=== PATIENT | male | born 1950 | race Caucasian/White ===

== ENCOUNTER 2018-10-08 16:45 | Inpatient (IN) | payer BC, MEDICARE ==
[2018-10-08] MEDS ORDERED: SODIUM CHLORIDE 0.9% 500 ML 500 ML IV STA (17:58)
[2018-10-08] MEDS ORDERED: MORPHINE SULFATE 2 MG/ML SYRINGE IVP STA (17:58)
--- NOTE | 2018-10-08 18:04 | ED ---
Abdominal Pain HPI - General Chief Complaint: Abdominal Pain Stated Complaint: abd pain Time Seen by Provider: 10/08/18 17:17 Source: patient Mode of arrival: ambulatory Limitations: no limitations - History of Present Illness Initial Comments: The patient is a 67-year-old male who presents emergency Department with reported abdominal pain and vomiting. He reports that his symptoms started yesterday. He is a periumbilical cramping sensation that does not radiate. It started after he may have ate some tainted foods. He had multiple episodes of emesis. He has been unable to hold down any food of water and therefore his emesis has turned into dry heaving. He denies any hematemesis. He denies any diarrhea, constipation, melanotic stools or hematochezia. He denies any changes in her urination to the dysuria, hematuria difficulty voiding. He denies any history of abdominal issues. No abdominal surgeries. He did go to an urgent care this morning was provided with Zofran 8 mg. States that this medication has helped his nausea. I did refer him to the emergency department for imaging. He denies any fevers or chills. He denies any back or flank pain. No abdominal trauma. He has had one history of similar in the past which was rel ated to food poisoning. Currently he denies any sick contacts or recent travel. No antibiotic use. Her no other alleviating, precipitating or modifying factors - Related Data Home Medications Medication Instructions Recorded Confirmed Ondansetron HCl [Zofran] 8 mg PO TID PRN 10/08/18 10/08/18 Allergies Allergy/AdvReac Type Severity Reaction Status Date / Time No Known Allergies Allergy Verified 10/08/18 17:59 Review of Systems ROS Statement: Those systems with pertinent positive or pertinent negative responses have been documented in the HPI. ROS Other: All systems not noted in ROS Statement are negative. Past Medical History Past Medical History: No Reported History History of Any Multi-Drug Resistant Organisms: None Reported Past Surgical History: No Surgical Hx Reported Past Psychological History: No Psychological Hx Reported Smoking Status: Light tobacco smoker Past Alcohol Use History: None Reported Past Drug Use History: None Reported General Exam Limitations: no limitations Course Vital Signs 10/08/18 10/08/18 10/08/18 17:11 18:30 20:00 Temperature 97.9 F Pulse Rate 60 56 L 57 L Respiratory 20 18 18 Rate Blood Pressure 135/81 144/95 131/83 O2 Sat by Pulse 97 93 L 97 Oximetry 10/08/18 10/08/18 10/08/18 21:00 22:00 23:00 Temperature Pulse Rate 66 56 L 61 Respiratory 18 18 18 Rate Blood Pressure 150/88 114/68 144/86 O2 Sat by Pulse 93 L 95 93 L Oximetry Medical Decision Making - Medical Decision Making Upon arrival the patient was placed into room 11. He is hooked up to continuous pulse ox and cardiac monitoring. A 12-lead EKG was performed the patient which demonstrates a sinus bradycardia. IV access was established and the patient w as given 4 mg of Zofran for his nausea. He is also provided informal grams of morphine for his pain. His were conducted. He was sent for a CT of his abdomen and pelvis. I also completed a right upper quadrant ultrasound. Upon return results they are reviewed and discussed with the patient. The patient does have a notable white count of 17.4. He also has a lipase of 2300. The patient's LDH is 492. I did discuss results results with the patient. I did discuss the diagnosis, differential and treatment options. It is reevaluated and continues to have pain. Because of this I did provide the patient with 0.5 mg of Dilaudid. I did recommend admission to the hospital for continued pain management and fluid hydration. The patient was started 120 mL of normal saline per hour. He will receive antiemetics and pain medications as needed. I did admit the patient to Dr. Paige. I did call discuss case with him and he did accept the admission. I will place a consult for Dr. Hendrix from . The patient was reevaluated, remained more comfortable and is currently awaiting transport to the floor - Lab Data Result diagrams: 10/08/18 17:35 10/08/18 17:35 Lab Results 10/08/18 10/08/18 10/08/18 Range/Units 17:35 17:35 17:35 WBC 17.4 H (3.8-10.6) k/uL RBC 5.12 (4.30-5.90) m/uL Hgb 15.7 (13.0-17.5) gm/dL Hct 47.1 (39.0-53.0) % MCV 92.0 (80.0-100.0) fL MCH 30.6 (25.0-35.0) pg MCHC 33.2 (31.0-37.0) g/dL RDW 14.0 (11.5-15.5) % Plt Count 270 (150-450) k/uL Neutrophils % 79 % Lymphocytes % 15 % Monocytes % 4 % Eosinophils % 0 % Basophils % 0 % Neutrophils # 13.8 H (1.3-7.7) k/uL Lymphocytes # 2.7 (1.0-4.8) k/uL Monocytes # 0.8 (0-1.0) k/uL Eosinophils # 0.1 (0-0.7) k/uL Basophils # 0.0 (0-0.2) k/uL Sodium 140 (137-145) mmol/L Potassium 3.7 (3.5-5.1) mmol/L Chloride 104 (98-107) mmol/L Carbon Dioxide 26 (22-30) mmol/L Anion Gap 10 mmol/L BUN 21 H (9-20) mg/dL Creatinine 0.78 (0.66-1.25) mg/dL Est GFR (CKD-EPI)AfAm >90 (>60 ml/min/1.73 sqM) Est GFR (CKD-EPI)NonAf >90 (>60 ml/min/1.73 sqM) Glucose 116 H (74-99) mg/dL Plasma Lactic Acid Klever 1.4 (0.7-2.0) mmol/L Calcium 9.5 (8.4-10.2) mg/dL Total Bilirubin 0.8 (0.2-1.3) mg/dL AST 31 (17-59) U/L ALT 39 (21-72) U/L Alkaline Phosphatase 92 (38-126) U/L Lactate Dehydrogenase (313-618) U/L Total Protein 7.6 (6.3-8.2) g/dL Albumin 4.4 (3.5-5.0) g/dL Lipase 2368 H (23-300) U/L Urine Color Urine Appearance (Clear) Urine pH (5.0-8.0) Ur Specific [place] (1.001-1.035) Urine Protein (Negative) Urine Glucose (UA) (Negative) Urine Ketones (Negative) Urine Blood (Negative) Urine Nitrite (Negative) Urine Bilirubin (Negative) Urine Urobilinogen (<2.0) mg/dL Ur Leukocyte Esterase (Negative) Urine RBC (0-5) /hpf Urine WBC (0-5) /hpf Urine Mucus (None) /hpf 10/08/18 10/08/18 Range/Units 17:35 17:35 WBC (3.8-10.6) k/uL RBC (4.30-5.90) m/uL Hgb (13.0-17.5) gm/dL Hct (39.0-53.0) % MCV (80.0-100.0) fL MCH (25.0-35.0) pg MCHC (31.0-37.0) g/dL RDW (11.5-15.5) % Plt Count (150-450) k/uL Neutrophils % % Lymphocytes % % Monocytes % % Eosinophils % % Basophils % % Neutrophils # (1.3-7.7) k/uL Lymphocytes # (1.0-4.8) k/uL Monocytes # (0-1.0) k/uL Eosinophils # (0-0.7) k/uL Basophils # (0-0.2) k/uL Sodium (137-145) mmol/L Potassium (3.5-5.1) mmol/L Chloride (98-107) mmol/L Carbon Dioxide (22-30) mmol/L Anion Gap mmol/L BUN (9-20) mg/dL Creatinine (0.66-1.25) mg/dL Est GFR (CKD-EPI)AfAm (>60 ml/min/1.73 sqM) Est GFR (CKD-EPI)NonAf (>60 ml/min/1.73 sqM) Glucose (74-99) mg/dL Plasma Lactic Acid Klever (0.7-2.0) mmol/L Calcium (8.4-10.2) mg/dL Total Bilirubin (0.2-1.3) mg/dL AST (17-59) U/L ALT (21-72) U/L Alkaline Phosphatase (38-126) U/L Lactate Dehydrogenase 492 (313-618) U/L Total Protein (6.3-8.2) g/dL Albumin (3.5-5.0) g/dL Lipase (23-300) U/L Urine Color Yellow Urine Appearance Clear (Clear) Urine pH 5.5 (5.0-8.0) Ur Specific [place] 1.028 (1.001-1.035) Urine Protein 1+ H (Negative) Urine Glucose (UA) Negative (Negative) Urine Ketones Negative (Negative) Urine Blood Small H (Negative) Urine Nitrite Negative (Negative) Urine Bilirubin Negative (Negative) Urine Urobilinogen <2.0 (<2.0) mg/dL Ur Leukocyte Esterase Negative (Negative) Urine RBC 1 (0-5) /hpf Urine WBC <1 (0-5) /hpf Urine Mucus Many H (None) /hpf - EKG Data EKG Comments: EKG demonstrates since but a cardio with a ventricular rate of 59. CT interval 196. QRS 110. QTC of 411. There is an inverted T-wave in lead 3. No acute ST segment elevations Disposition Clinical Impression: Acute pancreatitis, Leukocytosis Disposition: ADMITTED IP TO THIS HOSP Condition: Stable Is patient prescribed a controlled substance at d/c from ED?: No Decision to Admit Reason: Admit from EC Decision Date: 10/09/18 Decision Time: 00:16
[2018-10-08 18:14] LABS: Appearance,Urine Clear (Clear); Bilirubin,Urine Negative (Negative); Blood,Urine Small (Negative); Color,Urine Yellow; Glucose,Urine (UA) Negative (Negative); Ketones,Urine Negative (Negative); Leukocyte Esterase,Urine Negative (Negative); Mucus,Urine Many /hpf; Nitrite,Urine Negative (Negative); PH, Urine 5.5 (5.0-8.0); Protein,Urine 1+ (Negative); RBC,Urine 1 /hpf (0-5); Specific Gravity,Urine 1.028 (1.001-1.035); Urobilinogen,Urine <2.0 mg/dL (<2.0); WBC,Urine <1 /hpf (0-5)
[2018-10-08 18:21] LABS: ALT 39 U/L (21-72); AST 31 U/L (17-59); African American GFR (CKD) >90 (>60 ml/min/1.73 sqM); Albumin 4.4 g/dL (3.5-5.0); Alkaline Phosphatase 92 U/L (38-126); Anion Gap 10 mmol/L; Blood Urea Nitrogen 21 mg/dL (9-20); Calcium 9.5 mg/dL (8.4-10.2); Carbon Dioxide 26 mmol/L (22-30); Chloride 104 mmol/L (98-107); Glucose 116 mg/dL (74-99); Potassium 3.7 mmol/L (3.5-5.1); Sodium 140 mmol/L (137-145); Total Bilirubin 0.8 mg/dL (0.2-1.3); Total Protein 7.6 g/dL (6.3-8.2)
[2018-10-08 18:37] LABS: Basophils % (A) 0 %; Eosinophils # (A) 0.1 k/uL (0-0.7); Eosinophils % (A) 0 %; HCT 47.1 % (39.0-53.0); HGB 15.7 gm/dL (13.0-17.5); Lymphocytes # (A) 2.7 k/uL (1.0-4.8); Lymphocytes % (A) 15 %; MCH 30.6 pg (25.0-35.0); MCHC 33.2 g/dL (31.0-37.0); Monocytes # (A) 0.8 k/uL (0-1.0); Monocytes % (A) 4 %; Neutrophils # (A) 13.8 k/uL (1.3-7.7); Neutrophils % (A) 79 %; Platelet Count 270 k/uL (150-450); RBC 5.12 m/uL (4.30-5.90); WBC 17.4 k/uL (3.8-10.6)
--- NOTE | 2018-10-08 19:55 | CT ---
EXAMINATION TYPE: CT abdomen pelvis w con DATE OF EXAM: 10/08/2018 COMPARISON: None HISTORY: Abdominal pain, vomiting and hematuria CT DLP: 915 mGycm, Automated Exposure Control for Dose Reduction was Utilized. CONTRAST: CT scan of the abdomen and pelvis is performed without oral but with IV Contrast, patient injected wi th 100 mL of Isovue 300. FINDINGS: LUNG BASES: Dependent atelectasis is present bilaterally is additional peripheral linear scarring and /or atelectasis. LIVER/GB: Trace ascites seen anteriorly. A few simple appearing thin-walled cysts throughout the live r. Contracted gallbladder with perhaps mild surrounding fluid. PANCREAS: Some mild fluid surrounds the pancreas. No suspicious nonenhancement or focal fluid collect ion. SPLEEN: No significant abnormality is seen. ADRENALS: No significant abnormality is seen. KIDNEYS: Symmetric cortical medullary uptake and excretion without hydronephrosis seen bilaterally. S imple appearing 2.6 cm cyst upper pole of the left kidney axial image 19. BOWEL: Suboptimal evaluation of bowel due to lack of enteric contrast. Stomach is poorly distended an d suboptimally evaluated there is mild to moderate wall thickening with moderate fluid surrounding du odenal sweep is mild/moderate wall thickening with fluid surrounding the transverse colon slightly re dundant sigmoid colon. No suspicious small or large bowel dilatation. PROSTATE/SEMINAL VESICLES: No gross abnormality seen. LYMPH NODES: No greater than 1cm abdominal or pelvic lymph nodes are appreciated. OSSEOUS STRUCTURES: Multilevel vacuum disc phenomenon with mild to moderate multilevel spurring. In t his vertebra with Schmorl node anterior superior L5 level mild to moderate narrowing both hip joints. . OTHER: Few scattered pelvic phleboliths. IMPRESSION: [id number] fluid and fat stranding upper to mid abdominal region. Differential incl udes acute enterocolitis involving duodenum and transverse colon, correlate clinically for infectious inflammatory or ischemic etiology. Differential also would include acute pancreatitis, correlate cli nically and with pancreatic lab values.
--- NOTE | 2018-10-08 23:34 | US ---
EXAM: US Abdomen Limited, Right Upper Quadrant CLINICAL HISTORY: Pain TECHNIQUE: Real-time ultrasound of the right upper quadrant with image documentation. COMPARISON: No relevant prior studies available. FINDINGS: Liver: Liver measures up to 20.1 cm. Increased echogenicity suggesting hepatic steatosis. Multiple presumed cysts within the liver, the largest within the left hepatic lobe measuring up to 2.2 cm. Focal fatty sparing in the liver adjacent to the gallbladder. No intrahepatic bile duct dilation. Gallbladder: Unremarkable. No gallstones. Common bile duct: Common bile duct measures up to 7 mm. No stones. No dilation. Pancreas: The pancreas is not well-visualized second bowel gas. Right kidney: Right kidney measures up to 12.2 cm. No stones. No hydronephrosis. Free fluid: Trace free fluid in the right upper quadrant. IMPRESSION: 1. Abdomen the with hepatic steatosis. 2. Trace free fluid in the right upper quadrant.
[2018-10-09] MEDS ORDERED: ONDANSETRON 4 MG/2 ML VIAL IVP PRN (00:36)
[2018-10-09] MEDS ORDERED: NALOXONE 0.4 MG/ML 1 ML VIAL IV PRN (00:36)
[2018-10-09] MEDS ORDERED: HYDROmorphone 0.5 MG/0.5 ML SYRINGE IVP STA (00:36)
[2018-10-09 08:24] VITALS: BMI 30.1
--- NOTE | 2018-10-09 12:30 | P.CONS ---
History of Present Illness - Reason for Consult Consult date: 10/09/18 Pancreatitis Requesting physician: Tino Paige - Chief Complaint Abdominal pain - History of Present Illness 67-year-old gentleman admitted with acute abdominal pain nausea vomiting without fever chills hematemesis hematochezia melena 2 days. White count 17.4. H emoglobin 15.7. Platelet 270. Liver function tests within normal limits. Lipase 2368. LDH 492. No history of pancreatitis. No history of alcoholism. No changes in medications. No history of known autoimmune diseases. He has similar GI symptoms abdominal pain about a year ago did not require medical attention. No constipation or diarrhea. No history of peptic ulcer disease. No recent EGD. CT abdomen and pelvis mild to moderate fluid and fat stranding upper to mid abdomen differential includes acute enterocolitis involving duodenum and transverse colon correlate clinically for infectious inflammatory ischemic etiology. Possible acute pancreatitis. Ultrasound abdomen hepatic steatosis. Liver 20.1 cm. Multiple presumed cysts within the liver largest left hepatic lobe measuring up to 2.2 cm. CBD 7 mm. No stones. No biliary tree dilation. Pancreas not visualized. Trace free fluid in the right upper quadrant. Review of Systems Constitutional: Denies fever, chills, sweats, weight gain, or loss. HEENT: Negative for migraines, blurred vision or loss, earaches, drainage, tinnitus, oral mucosal lesions, dysphagia, or odynophagia. Cardiac: Negative for chest pain, arrhythmias, or palpitation. Respiratory: Negative for shortness of breath, hemoptysis, cough, or sputum production. Gastrointestinal: See HPI for pertinent findings. Genitourinary: Negative for hematuria, urgency, frequency, polyuria, dysuria, or penile discharge. Musculoskeletal: Negative for muscle aches, swelling, arthritis, and arthralgias. Neurologic: Negative for stroke or TIA. Endocrine: Negative for thyroid problems. Skin: Negative for rash or itching. Psychiatric: Negative history for depression and anxiety Past Medical History Past Medical History: No Reported History History of Any Multi-Drug Resistant Organisms: None Reported Past Surgical History: No Surgical Hx Reported Additional Past Surgical History / Comment(s): cyst removed from finger Past Anesthesia/Blood Transfusion Reactions: No Reported Reaction Past Psychological History: No Psychological Hx Reported Smoking Status: Current some day smoker Past Alcohol Use History: None Reported Past Drug Use History: None Reported - Past Family History Father Family Medical History: Dementia Medications and Allergies Home Medications Medication Instructions Recorded Confirmed Type Ondansetron HCl [Zofran] 8 mg PO TID PRN 10/08/18 10/08/18 History Allergies Allergy/AdvReac Type Severity Reaction Status Date / Time No Known Allergies Allergy Verified 10/08/18 17:59 Physical Exam Vitals: Vital Signs Temp Pulse Pulse Resp BP BP Pulse Ox 10/09/18 09:14 98.0 F 66 18 127/80 93 L 10/09/18 05:44 97.9 F 66 16 110/73 95 10/08/18 23:00 61 18 144/86 93 L 10/08/18 22:00 56 L 18 114/68 95 10/08/18 21:00 66 18 150/88 93 L 10/08/18 20:00 57 L 18 131/83 97 10/08/18 18:30 56 L 18 144/95 93 L 10/08/18 17:11 97.9 F 60 20 135/81 97 Intake and Output 10/08/18 10/09/18 10/09/18 22:59 06:59 14:59 Other: Weight 89.811 kg General appearance: The patient is alert, oriented, in no acute distress. HET: Head is normocephalic and atraumatic. Pupils are equal and reactive. Oropharynx is clear without lesions. Neck: Supple without lymphadenopathy. Trachea midline. Heart: S1 S2. Regular rate and rhythm. Lungs: No crackles or wheezes are heard. Abdomen: Soft, mildly tender to bilateral upper abdomen, nondistended with bowel sounds. No peritoneal signs. No palpable organomegaly or masses. Extremities: Normal skin color and turgor. No cyanosis, rash, ulceration, clubbing, or edema. Radial and pedal pulses are 2/4 bilaterally. Neurological: No focal deficits. Strength and sensation are grossly intact. Results CBC & Chem 7: 10/08/18 17:35 10/08/18 17:35 Labs: Abnormal Lab Results - Last 24 Hours (Table) 10/08/18 10/08/18 10/08/18 Range/Units 17:35 17:35 17:35 WBC 17.4 H (3.8-10.6) k/uL Neutrophils # 13.8 H (1.3-7.7) k/uL BUN 21 H (9-20) mg/dL Glucose 116 H (74-99) mg/dL Lipase 2368 H (23-300) U/L Urine Protein 1+ H (Negative) Urine Blood Small H (Negative) Urine Mucus Many H (None) /hpf CT scan - abdomen: report reviewed (Dr. Hendrix) Assessment and Plan (1) Acute pancreatitis Narrative/Plan: Acute pancreatitis first documented episode etiology unclear Current Visit: Yes Status: Acute Code(s): K85.90 - ACUTE PANCREATITIS WITHOUT NECROSIS OR INFECTION, UNSP SNOMED Code(s): 042224239 (2) Hepatic cyst Current Visit: Yes Status: Acute Code(s): K76.89 - OTHER SPECIFIED DISEASES OF LIVER SNOMED Code(s): 29512395 (3) Hepatomegaly Current Visit: Yes Status: Acute Code(s): R16.0 - HEPATOMEGALY, NOT ELSEWHERE CLASSIFIED SNOMED Code(s): 60449507 Plan: 1. Autoimmune serology requested. Check triglycerides. Protonix 40 mg daily. Nothing by mouth except ice chips medications and popsicles. Daily CBC BMP amylase lipase. Inpatient EGD contingent on clinical course. Outpatient follow-up in 3-4 weeks for reevaluation. Thank you for this kind referral and the opportunity to participate in the care of your patient. This consultation was discussed with Dr. Hendrix. The impression and plan of care have been directed as dictated.
[2018-10-09 12:48] LABS: Triglycerides 108 mg/dL (<150)
[2018-10-09] MEDS ORDERED: ONDANSETRON 4 MG TAB PO PRN (12:54)
[2018-10-09] MEDS: SODIUM CHLORIDE 0.9% 1,000 ML IV SCH ×2 (14:33→21:04)
[2018-10-09 14:45] LABS: Basophils # (A) 0.1 k/uL (0-0.2); Basophils % (A) 0 %; Eosinophils % (A) 0 %; HCT 45.9 % (39.0-53.0); HGB 14.6 gm/dL (13.0-17.5); Lymphocytes # (A) 1.9 k/uL (1.0-4.8); Lymphocytes % (A) 11 %; MCH 29.8 pg (25.0-35.0); MCHC 31.8 g/dL (31.0-37.0); MCV 93.9 fL (80.0-100.0); Mean Platelet Volume 7.2; Monocytes # (A) 0.9 k/uL (0-1.0); Monocytes % (A) 5 %; Neutrophils # (A) 15.4 k/uL (1.3-7.7); Neutrophils % (A) 83 %; Platelet Count 234 k/uL (150-450); RBC 4.89 m/uL (4.30-5.90); RDW 13.9 % (11.5-15.5); WBC 18.5 k/uL (3.8-10.6)
[2018-10-09] MEDS: PANTOPRAZOLE 40 MG/10 ML VIAL IVP SCH (15:48)
--- NOTE | 2018-10-09 16:11 | NM ---
EXAMINATION TYPE: NM hepatobiliary w CCK DATE OF EXAM: 10/09/2018 COMPARISON: 10/08/2018 HISTORY: 67-year-old male gallbladder disease, pain TECHNIQUE: After the intravenous administration of 4.8 mCi Tc 99m Mebrofenin hepatobiliary scintigrap hy is performed. Immediate images post injection. FINDINGS: There is satisfactory initial accumulation of tracer by the liver. The gallbladder is visualized wit hin 8 minutes. The small bowel activity is noted within 22 minutes. At one hour CCK was administere d, patient was injected with 1.8 mcg of Kinevac, and gallbladder ejection fraction is calculated at 9 8 %, elevated above the expected range. . IMPRESSION: 1. No scintigraphic evidence for acute/chronic cholecystitis or biliary dyskinesia. 2. Markedly elevated gallbladder ejection fraction (98%) may be seen in the setting of gallbladder hy perkinesis.
[2018-10-09 19:15] LABS: Hemoglobin A1C 5.6 % (4.0-6.0)
--- NOTE | 2018-10-09 20:05 | HP ---
HISTORY AND PHYSICAL CHIEF COMPLAINT: Upper abdominal pain for a day. HISTORY OF PRESENT ILLNESS: This is the first admission for this 67-year-old otherwise healthy white male. He developed some epigastric discomfort and came to the emergency room, where he was found to have markedly elevated lipase. When asked if he had trouble with his pancreas before, he stated that he has not, but he remembers an episode sometime in the past where he had the same type of pain. He is not an alcoholic. ANSHU / HAN: [id number] /
[2018-10-09] MEDS: HYDROmorphone 0.5 MG/0.5 ML SYRINGE IVP PRN (21:04)
--- NOTE | 2018-10-09 22:00 | HP ---
HISTORY AND PHYSICAL CHIEF COMPLAINT: Abdominal pain. HISTORY OF PRESENT ILLNESS: This is the first admission for this healthy 67-year-old white male. He presented to the emergency room with fairly significant epigastric pain which had been present for most of the day. He did have some nausea and vomiting. He thinks he might have had an episode like this in the past, but he is not sure. He is very healthy. He does not drink and he is not on any medication. He has had no indigestion and he has had no hematemesis, melena, hematochezia, jaundice, etc. Studies in the emergency room failed to demonstrate any pathology, including that regarding his gallbladder. REVIEW OF SYSTEMS: He has had no headaches, CVAs, neurologic problems, difficulty with vision or hearing, chest pain, heart disease, hypertension, palpitations, orthopnea, PND, murmurs, rheumatic fever, melena, hematochezia, jaundice, hepatitis, cirrhosis, food intolerance, kidney failure, frequency, urgency, dysuria, hematuria, diabetes, etc. Past medical history, family history, and personal and social histories are all otherwise unremarkable or noncontributory. He is NOT ALLERGIC TO ANY MEDICATION and he is not taking any. PHYSICAL EXAMINATION: Blood pressure is 127/80 with a pulse of 66, respirations of 18, and he is afebrile. In general he appeared to be well developed, well nourished, in no acute distress. Skin color is normal. Skin is warm and dry. There is no jaundice. Lymph nodes are not enlarged. Head, ears, eyes, nose, mouth and throat are normal. Neck veins not distended. Thyroid not enlarged. CHEST: Clear. Cardiac exam is normal. He is a little bit tender over the upper abdomen. There are no masses or visceromegaly. Bowel sounds are present. Extremities are normal. Neurologically he is intact. IMPRESSION: Acute pancreatitis, etiology unknown. PLAN: 1. Bed rest. 2. IV fluids. 3. Analgesics. 4. Rule out gallbladder disease. MMODL / IJN: [id number] /
[2018-10-10] MEDS: SODIUM CHLORIDE 0.9% 1,000 ML IV SCH ×3 (05:51→17:08)
[2018-10-10] MEDS: PANTOPRAZOLE 40 MG/10 ML VIAL IVP SCH (08:31)
[2018-10-10 10:48] LABS: IgG Subclass 3 19.1 mg/dL (11.0-85.0)
[2018-10-10 11:28] LABS: African American GFR (CKD) >90 (>60 ml/min/1.73 sqM); Anion Gap 8 mmol/L; Blood Urea Nitrogen 16 mg/dL (9-20); Calcium 8.3 mg/dL (8.4-10.2); Carbon Dioxide 27 mmol/L (22-30); Chloride 104 mmol/L (98-107); Glucose 82 mg/dL (74-99); Potassium 3.7 mmol/L (3.5-5.1); Sodium 139 mmol/L (137-145)
[2018-10-10 11:37] LABS: Basophils % (A) 0 %; Eosinophils # (A) 0.1 k/uL (0-0.7); Eosinophils % (A) 1 %; HCT 41.5 % (39.0-53.0); HGB 13.7 gm/dL (13.0-17.5); Lymphocytes % (A) 13 %; MCH 31.2 pg (25.0-35.0); MCHC 33.1 g/dL (31.0-37.0); MCV 94.3 fL (80.0-100.0); Mean Platelet Volume 7.5; Monocytes # (A) 0.7 k/uL (0-1.0); Monocytes % (A) 4 %; Neutrophils # (A) 12.3 k/uL (1.3-7.7); Neutrophils % (A) 81 %; Platelet Count 187 k/uL (150-450); RDW 14.4 % (11.5-15.5); WBC 15.2 k/uL (3.8-10.6)
--- NOTE | 2018-10-10 13:51 | PN ---
PROGRESS NOTE CHIEF COMPLAINT: Acute pancreatitis. HISTORY OF PRESENT ILLNESS: This gentleman is still feeling about the same and he is still having the same amount of pain. His lipase has dropped. He has been seen by Gastroenterology. Gallbladder studies have all been negative. PHYSICAL EXAM: Chest is clear. Cardiac exam is normal and the abdomen is soft and he is tender over the epigastrium. There are no masses. Bowel sounds are present. IMPRESSION: Acute pancreatitis, etiology unknown. PLAN: Await recommendations from Gastroenterology. The patient is improving. MMODL / IJN: [id number] /
[2018-10-10] MEDS: HYDROmorphone 0.5 MG/0.5 ML SYRINGE IVP PRN (21:42)
--- NOTE | 2018-10-11 00:26 | P.PN ---
Subjective Progress Note Date: 10/10/18 Principal diagnosis: Abdominal pain, acute uncomplicated pancreatitis Today reporting abdominal pain is much improved. No bowel movements reported. Asking for diet to be advanced. No nausea or vomiting. Objective - Vital Signs Vital signs: Vital Signs Temp 97.8 F 10/10/18 06:15 Pulse 70 10/10/18 06:15 Resp 17 10/10/18 08:00 BP 102/65 10/10/18 06:15 Pulse Ox 95 10/10/18 06:15 Intake & Output 10/09/18 10/10/18 10/10/18 18:59 06:59 18:59 Intake Total 260 Balance 260 Intake: Oral 260 Other: Voiding Method Urinal Urinal Urinal # Voids 1 1 2 - Exam On physical examination, patient appears comfortable in no apparent distress. HEAD: Normocephalic, atraumatic. EYES: No scleral icterus. No conjunctival injection. MOUTH: No lesions, tongue midline. NECK: Trachea midline, no gross abnormalities. CHEST: Clear to auscultation with no wheezing or rhonchi appreciated. HEART: Regular rate and rhythm. ABDOMEN: Soft, mildly tender to palpation. Bowel sounds are positive. No organomegaly. No guarding or rigidity. EXTREMITIES: No pedal edema. SKIN: No rashes, no jaundice. NEUROLOGIC: Alert and oriented x3. No focal deficits. - Labs CBC & Chem 7: 10/10/18 10:42 10/10/18 10:42 Labs: Abnormal Lab Results - Last 24 Hours (Table) 10/08/18 10/08/18 10/09/18 Range/Units 17:35 17:35 13:23 WBC 18.5 H (3.8-10.6) k/uL Neutrophils # 15.4 H (1.3-7.7) k/uL Calcium (8.4-10.2) mg/dL Lipase 2359 H (23-300) U/L IgG2 104.0 L (169.0-640.0) mg/dL 10/10/18 10/10/18 Range/Units 10:42 10:42 WBC 15.2 H (3.8-10.6) k/uL Neutrophils # 12.3 H (1.3-7.7) k/uL Calcium 8.3 L (8.4-10.2) mg/dL Lipase 345 H (23-300) U/L IgG2 (169.0-640.0) mg/dL Assessment and Plan (1) Acute pancreatitis Narrative/Plan: 67-year-old male presenting with abdominal pain and elevation in lipase consistent with acute pancreatitis. No gallstones or biliary dilation or laboratory studies including elevated liver enzymes/bilirubin to suggest biliary pathology, patient also denying alcohol use. Serologic workup with robel and IgG4 testing does not indicate autoimmune pathology. Currently symptomatically improving. Current Visit: Yes Status: Acute Code(s): K85.90 - ACUTE PANCREATITIS WITHOUT NECROSIS OR INFECTION, UNSP SNOMED Code(s): 851449874 (2) Hepatic cyst Current Visit: Yes Status: Acute Code(s): K76.89 - OTHER SPECIFIED DISEASES OF LIVER SNOMED Code(s): 02081252 (3) Hepatomegaly Current Visit: Yes Status: Acute Code(s): R16.0 - HEPATOMEGALY, NOT ELSEWHERE CLASSIFIED SNOMED Code(s): 20951477 (4) Leukocytosis Current Visit: Yes Status: Acute Code(s): D72.829 - ELEVATED WHITE BLOOD CELL COUNT, UNSPECIFIED SNOMED Code(s): 792643591 Plan: Supportive care Liquid diet, advance as tolerated Continue to monitor CBC, CMP ROBEL and IgG4 testing within normal limits Ultrasound abdomen reviewed Continue pain control and fluid hydration Patient will need further evaluation after discharge with MRI or endoscopic ultrasound 6-8 weeks after pancreatitis occurred Thank you for allowing us to participate in the care of the patient we will continue to follow
[2018-10-11] MEDS: HYDROmorphone 0.5 MG/0.5 ML SYRINGE IVP PRN ×2 (02:24→23:33)
[2018-10-11] MEDS: SODIUM CHLORIDE 0.9% 1,000 ML IV SCH (05:47)
[2018-10-11] MEDS: PANTOPRAZOLE 40 MG/10 ML VIAL IVP SCH (07:27)
[2018-10-11 12:40] LABS: Basophils % (A) 0 %; Eosinophils # (A) 0.1 k/uL (0-0.7); Eosinophils % (A) 1 %; HCT 40.6 % (39.0-53.0); HGB 13.3 gm/dL (13.0-17.5); Lymphocytes % (A) 15 %; MCH 29.9 pg (25.0-35.0); MCHC 32.7 g/dL (31.0-37.0); MCV 91.5 fL (80.0-100.0); Mean Platelet Volume 7.6; Monocytes # (A) 0.7 k/uL (0-1.0); Monocytes % (A) 5 %; Neutrophils # (A) 10.8 k/uL (1.3-7.7); Neutrophils % (A) 78 %; Platelet Count 201 k/uL (150-450); RBC 4.44 m/uL (4.30-5.90); RDW 13.6 % (11.5-15.5); WBC 13.8 k/uL (3.8-10.6)
--- NOTE | 2018-10-11 19:36 | PN ---
PROGRESS NOTE CHIEF COMPLAINT: Pancreatitis. HISTORY OF PRESENT ILLNESS: This gentleman is still having quite a bit of discomfort. He has had no vomiting. He has had no fever or chills. We are waiting on further guidelines from Gastroenterology. He may be a good candidate for endoscopy to rule out a posterior penetrating ulcer. 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 Chest is clear. Cardiac exam is normal. Abdomen is soft, nontender. IMPRESSION: Pancreatitis, etiology unknown. PLAN: Await further directions from Gastroenterology. If he is not going to have a scope, we will start to feed him and release him from the hospital as soon as possible. MMODL / IJN: [id number] /
--- NOTE | 2018-10-12 00:08 | P.PN ---
Subjective Progress Note Date: 10/11/18 Principal diagnosis: Abdominal pain, acute uncomplicated pancreatitis Still reporting some abdominal tenderness, much improved from presentation and stable from yesterday. Reports 2 bowel movements today. Has tolerated advancement in his diet. Objective - Vital Signs Vital signs: Vital Signs Temp 98.2 F 10/11/18 23:00 Pulse 69 10/11/18 23:00 Resp 16 10/11/18 23:00 BP 120/76 10/11/18 23:00 Pulse Ox 94 L 10/11/18 23:00 Intake & Output 10/11/18 10/11/18 10/12/18 06:59 18:59 06:59 Intake Total 700 850 600 Balance 700 850 600 Intake: Oral 700 850 600 Other: Voiding Method Urinal Toilet # Voids 2 2 1 - Exam On physical examination, patient appears comfortable in no apparent distress. HEAD: Normocephalic, atraumatic. EYES: No scleral icterus. No conjunctival injection. MOUTH: No lesions, tongue midline. NECK: Trachea midline, no gross abnormalities. CHEST: Clear to auscultation with no wheezing or rhonchi appreciated. HEART: Regular rate and rhythm. ABDOMEN: Soft, mildly tender to palpation. Bowel sounds are positive. No organomegaly. No guarding or rigidity. EXTREMITIES: No pedal edema. SKIN: No rashes, no jaundice. NEUROLOGIC: Alert and oriented x3. No focal deficits. - Labs CBC & Chem 7: 10/11/18 12:00 10/10/18 10:42 Labs: Abnormal Lab Results - Last 24 Hours (Table) 10/11/18 10/11/18 Range/Units 12:00 12:00 WBC 13.8 H (3.8-10.6) k/uL Neutrophils # 10.8 H (1.3-7.7) k/uL Lipase 453 H (23-300) U/L Assessment and Plan (1) Acute pancreatitis Narrative/Plan: 67-year-old male presenting with abdominal pain and elevation in lipase consis tent with acute pancreatitis. No gallstones or biliary dilation or laboratory studies including elevated liver enzymes/bilirubin to suggest biliary pathology, patient also denying alcohol use. Serologic workup with robel and IgG4 testing does not indicate autoimmune pathology. Currently symptomatically improving. Current Visit: Yes Status: Acute Code(s): K85.90 - ACUTE PANCREATITIS WITHOUT NECROSIS OR INFECTION, UNSP SNOMED Code(s): 007404802 (2) Hepatic cyst Current Visit: Yes Status: Acute Code(s): K76.89 - OTHER SPECIFIED DISEASES OF LIVER SNOMED Code(s): 18139389 (3) Hepatomegaly Current Visit: Yes Status: Acute Code(s): R16.0 - HEPATOMEGALY, NOT ELSEWHERE CLASSIFIED SNOMED Code(s): 43090071 (4) Leukocytosis Current Visit: Yes Status: Acute Code(s): D72.829 - ELEVATED WHITE BLOOD CELL COUNT, UNSPECIFIED SNOMED Code(s): 570790261 Plan: Supportive care Heart healthy diet Continue to monitor CBC, CMP ROBEL and IgG4 testing within normal limits Ultrasound abdomen reviewed Continue pain control and fluid hydration Patient will need further evaluation after discharge with MRI or endoscopic ultrasound 6-8 weeks after pancreatitis occurred Okay for discharge from gastroenterology standpoint Thank you for allowing us to participate in the care of the patient, the gastroenterology service will stand by, please call us back with any questions or concerns
[2018-10-12 06:42] VITALS: BP 118/72; PULSE 73; RESP 15; TEMP 98.1
[2018-10-12] MEDS: PANTOPRAZOLE 40 MG/10 ML VIAL IVP SCH (08:28)
--- NOTE | 2018-10-13 00:06 | DS ---
DISCHARGE SUMMARY CHIEF COMPLAINT: Abdominal pain. HISTORY OF PRESENT ILLNESS AND PHYSICAL EXAM: Details of this man's history and physical can be found in the initial workup. COURSE IN HOSPITAL: After admission, he was placed on bedrest and started on intravenous fluids and monitored with regard to his abdominal pain and lipase. Pain slowly began to subside as well as the lipase. He was seen by Gastroenterology. It was hoped that they might consider upper GI endoscopy to rule out ulcer disease as a cause of his pancreatitis. However, this was not done. He was doing well and it was felt he could go home on October 12. He will go home on a regular activity and diet and will follow up in the office and if he continues to have further trouble, further studies will be performed. FINAL DIAGNOSES: Acute idiopathic pancreatitis. OPERATIONS: None. CONSULTATIONS: Gastroenterology. He is improved. MMJDL / ELIN: [id number] /
== END 2018-10-12 13:16 | disposition home or self-care (01) | DRG 440 ==
LOC: EC 16:45 → 4MS4W 10-09 00:41
PROVIDERS: ADMIT Family Medicine; ATTEND Family Medicine
DX: K85.00 Idiopathic acute pancreatitis without necrosis or infection (principal); K76.89 Other specified diseases of liver; R16.0 Hepatomegaly, not elsewhere classified; F17.200 Nicotine dependence, unspecified, uncomplicated; K76.0 Fatty (change of) liver, not elsewhere classified; N28.1 Cyst of kidney, acquired; Z81.8 Family history of other mental and behavioral disorders
CPT/HCPCS: 36415; 74177; 76705; 78227; 80048; 80053; 81001; 82787; 83036; 83605; 83615; 83690; 84478; 85025; 86038; 93005; 96361; 96374; 96375; 99285

== ENCOUNTER 2020-05-12 09:01 | Day surgery (SDC) | payer BC, MEDICARE ==
[2020-05-07 11:18] VITALS: BMI 29.9
[~2020-05-12 09:01] MED LIST: LACTATED RINGERS 1,000 ML IV SCH; LIDOCAINE 1% (10MG/ML) FOR IV START INTRADERMA PRN
[2020-05-12 09:27] VITALS: TEMP 97.8
[2020-05-12] MEDS ORDERED: PROPOFOL 10 MG/ML 20 ML VIAL IV ONE (09:40)
--- NOTE | 2020-05-12 09:43 | P.GSHP ---
History of Present Illness H&P Date: 05/12/20 Chief Complaint: Colon cancer screening Patient here today for colonoscopy. Has not had 1 previous it. No bowel complaints. No family history of colon cancer. Past Medical History Past Medical History: No Reported History History of Any Multi-Drug Resistant Organisms: None Reported Past Surgical History: No Surgical Hx Reported Additional Past Surgical History / Comment(s): Cyst removed from finger. Past Anesthesia/Blood Transfusion Reactions: No Reported Reaction Past Psychological History: No Psychological Hx Reported Smoking Status: Former smoker Past Alcohol Use History: None Reported Additional Past Alcohol Use History / Comment(s): Quit smoking 15 yrs ago. Past Drug Use History: None Reported - Past Family History Father Family Medical History: Dementia Medications and Allergies Home Medications Medication Instructions Recorded Confirmed Type No Known Home Medications 05/07/20 05/12/20 History Allergies Allergy/AdvReac Type Severity Reaction Status Date / Time No Known Allergies Allergy Verified 05/12/20 09:25 Surgical - Exam Vital Signs Temp Pulse Resp BP Pulse Ox 97.8 F 64 16 152/84 95 05/12/20 09:20 05/12/20 09:20 05/12/20 09:20 05/12/20 09:20 05/12/20 09:20 Physical exam: General: Well-developed, well-nourished HEENT: Normocephalic, sclerae nonicteric Abdomen: Nontender, nondistended Extremities: No edema Neuro: Alert and oriented Assessment and Plan (1) Colon cancer screening Narrative/Plan: Proceed with colonoscopy Current Visit: Yes Status: Acute Code(s): Z12.11 - ENCOUNTER FOR SCREENING FOR MALIGNANT NEOPLASM OF COLON SNOMED Code(s): 352015231
--- NOTE | 2020-05-12 10:04 | P.PCN ---
Date of Procedure: 05/12/20 Procedure(s) Performed: PREOPERATIVE DIAGNOSIS: Colon cancer screening POSTOPERATIVE DIAGNOSIS: Transverse colon polyp and hepatic flexure polyp, diverticulosis PROCEDURE: Colonoscopy with snare polypectomy ANESTHESIA: MAC SURGEON: Tim Moses M.D. SPECIMENS: Polyps ENDOSCOPIC PROCEDURE: The patient was placed on the endoscopy table in the left decubitus position. The Olympus colonoscope was inserted into the anus and passed under direct visualization to the base of the cecum. The appendiceal edgar fice was visualized. From that point the scope was slowly withdrawn inspecting all surfaces carefully. There were no neoplastic inflammatory or polypoid lesions throughout the cecum or a setting colon. At the hepatic flexure a small polyp was seen and removed using the snare with cautery technique. In the transverse colon another small polyp was seen and removed in a similar fashion. The remainder of the transverse descending sigmoid and rectum was normal. There was mild left-sided diverticulosis present. Digital rectal examination was normal. The patient was taken to the recovery room in stable condition per anesthesia guidelines. RECOMMENDATIONS: Await biopsy results. Anticipate follow-up colonoscopy 5 years.
[2020-05-12 10:26] VITALS: BP 116/75; PULSE 57; RESP 17
== END 2020-05-12 10:51 | disposition home or self-care (01) ==
LOC: ORWHC2ENDO 09:01
PROVIDERS: ATTEND Surgery
DX: Z12.11 Encounter for screening for malignant neoplasm of colon (principal); D12.3 Benign neoplasm of transverse colon; K57.30 Diverticulosis of large intestine without perforation or abscess without bleeding; Z87.891 Personal history of nicotine dependence; Z81.8 Family history of other mental and behavioral disorders
CPT/HCPCS: 88305; 45385; J2704

== ENCOUNTER 2022-09-05 19:12 | Emergency (ER) | payer BC, MEDICARE ==
[2022-09-05 19:20] LABS: Glucose,Whole Blood 125 mg/dL (70-110)
[2022-09-05 19:23] VITALS: TEMP 97.8
--- NOTE | 2022-09-05 19:32 | ED ---
GI Bleed HPI - General Chief complaint: GI Bleed Stated complaint: Vomiting blood, hypotension Time Seen by Provider: 09/05/22 19:23 Source: patient, EMS Mode of arrival: EMS Limitations: no limitations - History of Present Illness Initial comments: This patient is a 71-year-old man with no history of GI bleeding who presents with multiple complaints. He had been feeling well throughout the course the day and had gone for bicycle ride. After returning home he felt that he needed to have a bowel movement. He was in the bathroom and then recalls waking up. He had apparently passed out. The patient then had a bowel movement with dark stool. He also had coffee ground emesis. EMS was called and brought the patient here. On arrival, the patient denies chest pain, dyspnea, abdominal pain, palpitations. He does feel lightheaded if he gets up. MD complaint: coffee ground emesis, melena Onset/Timin -: hour(s) Severity scale (1-10): 0 Quality: painless Consistency: now resolved Improves with: none Worsens with: none Associated Symptoms: syncope - Related Data Home Medications Medication Instructions Recorded Confirmed No Known Home Medications 05/07/20 05/12/20 Allergies Allergy/AdvReac Type Severity Reaction Status Date / Time No Known Allergies Allergy Verified 09/05/22 19:20 Review of Systems ROS Statement: Those systems with pertinent positive or pertinent negative responses have been documented in the HPI. ROS Other: All systems not noted in ROS Statement are negative. Constitutional: Denies: fever, chills, weakness Eyes: Denies: vision change Respiratory: Denies: cough, dyspnea Cardiovascular: Reports: syncope. Denies: chest pain, palpitations, orthopnea, edema Gastrointestinal: Reports: nausea, vomiting, diarrhea, hematemesis, melena. Denies: abdominal pain Genitourinary: Denies: dysuria, hematuria Musculoskeletal: Denies: back pain Skin: Denies: rash Neurological: Denies: headache, weakness, numbness Hematological/Lymphatic: Denies: easy bleeding Past Medical History Past Medical History: No Reported History History of Any Multi-Drug Resistant Organisms: None Reported Past Surgical History: No Surgical Hx Reported Additional Past Surgical History / Comment(s): Cyst removed from finger. carpal tunnel L hand Past Anesthesia/Blood Transfusion Reactions: No Reported Reaction Past Psychological History: No Psychological Hx Reported Smoking Status: Former smoker Past Alcohol Use History: None Reported Past Drug Use History: None Reported - Past Family History Father Family Medical History: Dementia General Exam Limitations: no limitations General appearance: alert, in no apparent distress Head exam: Present: atraumatic, normocephalic Eye exam: Present: normal appearance. Absent: scleral icterus, conjunctival injection ENT exam: Present: normal oropharynx Neck exam: Present: normal inspection Respiratory exam: Present: normal lung sounds bilaterally. Absent: respiratory distress, wheezes, rales, rhonchi, stridor Cardiovascular Exam: Present: regular rate, normal rhythm, normal heart sounds. Absent: systolic murmur, diastolic murmur, rubs, gallop GI/Abdominal exam: Present: soft. Absent: distended, tenderness, guarding, rebound, rigid, mass Extremities exam: Present: normal inspection, normal capillary refill. Absent: pedal edema, calf tenderness Back exam: Present: normal inspection. Absent: CVA tenderness (R), CVA tenderness (L) Neurological exam: Present: alert Skin exam: Present: warm, dry, intact, pallor. Absent: rash Course Vital Signs 09/05/22 09/05/22 09/05/22 19:13 19:20 19:30 Temperature 97.8 F Pulse Rate 56 L 55 L Pulse Rate [ Machine Maintenance Technician ] Respiratory 14 18 Rate Blood Pressure 102/65 102/65 101/65 O2 Sat by Pulse 99 98 100 Oximetry 09/05/22 09/05/22 09/05/22 19:31 20:00 20:30 Temperature Pulse Rate 55 L 57 L Pulse Rate [ 56 L Machine Maintenance Technician ] Respiratory 16 Rate Blood Pressure 96/67 87/59 O2 Sat by Pulse 99 99 Oximetry 09/05/22 09/05/22 09/05/22 21:00 21:30 21:40 Temperature Pulse Rate 61 56 L 50 L Pulse Rate [ Machine Maintenance Technician ] Respiratory 12 9 L 11 L Rate Blood Pressure 79/47 95/58 89/49 O2 Sat by Pulse 100 98 100 Oximetry 09/05/22 09/05/22 09/05/22 21:45 21:50 21:55 Temperature Pulse Rate 55 L 55 L 54 L Pulse Rate [ Machine Maintenance Technician ] Respiratory 17 Rate Blood Pressure 91/71 94/74 98/68 O2 Sat by Pulse 99 98 97 Oximetry 06/19/23 22:00 Temperature Pulse Rate 55 L Pulse Rate [ Machine Maintenance Technician ] Respiratory 18 Rate Blood Pressure 108/67 O2 Sat by Pulse 96 Oximetry Medical Decision Making - Medical Decision Making 's patient is 71-year-old man with acute gastrointestinal bleeding. There is no GI coverage in the hospital this week. I discussed that with the patient and family and he was receptive to transfer to . Case discussed with the transfer team there and they did accept transfer. Was pt. sent in by a medical professional or institution (, PA, [employer], urgent care, hospital, or fpc...) When possible be specific @ -[No] Did you speak to anyone other than the patient for history (EMS, parent, family, police, friend...)? What history was obtained from this source @ -[Patient's family is at bedside and didn't contribute to history Did you review nursing and triage notes (agree or disagree)? Why? @ -[I reviewed and agree with nursing and triage notes] Were old charts reviewed (outside hosp., previous admission, EMS record, old EKG, old radiological studies, urgent care reports/EKG's, fpc records)? Report findings @ -[No old charts were reviewed] Differential Diagnosis (chest pain, altered mental status, abdominal pain women, abdominal pain men, vaginal bleeding, weakness, fever, dyspnea, syncope, headache, dizziness, GI bleed, back pain, seizure, CVA, palpatations, mental health, musculoskeletal)? @ -[Differential GI Bleed: Esophageal varices, aortoenteric fistula, Rosa-Alvarez, gastritis, peptic ulcer disease, diverticulosis, inflammatory bowel disease, hemorrhoids, fissure, colitis, malignancy, Meckels diverticulum, this is not meant to be an all- inclusive list. EKG interpreted by me (3pts min.). @ -[As above] X-rays interpreted by me (1pt min.). @ -[None done] CT interpreted by me (1pt min.). @ -[None done] U/S interpreted by me (1pt. min.). @ -[None done] What testing was considered but not performed or refused? (CT, X-rays, U/S, labs)? Why? @ -[None] What meds were considered but not given or refused? Why? @ -[None] Did you discuss the management of the patient with other professionals (professionals i.e. , PA, [employer], lab, RT, psych nurse, director social service, special effects makeup artist, teacher, chief investment officer, case packer and sealer)? Give summary @ -[Essa case is discussed with the transfer team at [facility] as well as the GI specialist Was smoking cessation discussed for >3mins.? @ -[No] Was critical care preformed (if so, how long)? @ -[Yes, 30 minutes Were there social determinants of health that impacted care today? How? (Homelessness, low income, unemployed, alcoholism, drug addiction, transportation, low edu. Level, literacy, decrease access to med. care, shelter, rehab)? @ -[No] Was there de-escalation of care discussed even if they declined (Discuss DNR or withdrawal of care, Hospice)? DNR status @ -[No] What co-morbidities impacted this encounter? (DM, HTN, Smoking, COPD, CAD, Cancer, CVA, ARF, Chemo, Hep., AIDS, mental health diagnosis, sleep apnea, morbid obesity)? @ -[None] Was patient admitted / discharged? Hospital course, mention meds given and route, prescriptions, significant lab abnormalities, going to OR and other pertinent info. @ -[The patient is transferred to [facility] as there is no GI coverage this week Undiagnosed new problem with uncertain prognosis? @ -[No] Drug Therapy requiring intensive monitoring for toxicity (Heparin, Nitro, Insul in, Cardizem)? @ -[No] Were any procedures done? @ -[No] Diagnosis/symptom? @ -[Acute gastrointestinal bleeding Acute anemia Acute, or Chronic, or Acute on Chronic? @ -[default] Uncomplicated (without systemic symptoms) or Complicated (systemic symptoms)? @ -[The case was complicated briefly by hypotension Side effects of treatment? @ -[No] Exacerbation, Progression, or Severe Exacerbation? @ -[No] Poses a threat to life or bodily function? How? (Chest pain, USA, CA, pneumonia, PE, COPD, DKA, ARF, appy, cholecystitis, CVA, Diverticulitis, Homicidal, Suicidal, threat to staff... and all critical care pts) @ -[Yes untreated gastrointestinal bleeding mainly to severe anemia/hypotension/circulatory collapse/ - Lab Data Result diagrams: 09/05/22 19:25 09/05/22 19:25 Lab Results 09/05/22 09/05/22 09/05/22 Range/Units 19:19 19:20 19:25 WBC 10.5 (3.8-10.6) k/uL RBC 3.17 L (4.30-5.90) m/uL Hgb 10.4 L (13.0-17.5) gm/dL Hct 31.3 L (39.0-53.0) % MCV 98.7 (80.0-100.0) fL MCH 32.9 (25.0-35.0) pg MCHC 33.3 (31.0-37.0) g/dL RDW 13.4 (11.5-15.5) % Plt Count 193 (150-450) k/uL MPV 8.0 Neutrophils % 61 % Lymphocytes % 32 % Monocytes % 4 % Eosinophils % 2 % Basophils % 1 % Neutrophils # 6.4 (1.3-7.7) k/uL Lymphocytes # 3.3 (1.0-4.8) k/uL Monocytes # 0.4 (0-1.0) k/uL Eosinophils # 0.2 (0-0.7) k/uL Basophils # 0.1 (0-0.2) k/uL PT (9.0-12.0) sec INR (<1.2) APTT (22.0-30.0) sec Sodium (137-145) mmol/L Potassium (3.5-5.1) mmol/L Chloride (98-107) mmol/L Carbon Dioxide (22-30) mmol/L Anion Gap mmol/L BUN (9-20) mg/dL Creatinine (0.66-1.25) mg/dL Est GFR (CKD-EPI)AfAm (>60 ml/min/1.73 sqM) Est GFR (CKD-EPI)NonAf (>60 ml/min/1.73 sqM) Glucose (74-99) mg/dL POC Glucose (mg/dL) 125 H (70-110) mg/dL POC Glu Wet And Dry Sugar Bin Operator ID Lars Gaxiola Lactic Ac Sepsis Rflx Plasma Lactic Acid Klever (0.7-2.0) mmol/L Calcium (8.4-10.2) mg/dL Total Bilirubin (0.2-1.3) mg/dL AST (17-59) U/L ALT (4-49) U/L Alkaline Phosphatase (38-126) U/L Troponin I (0.000-0.034) ng/mL Total Protein (6.3-8.2) g/dL Albumin (3.5-5.0) g/dL Blood Type Blood Type Confirm A Positive Blood Type Recheck Bld Type Recheck Status Antibody Screen Crossmatch Spec Expiration Date 09/05/22 09/05/22 09/05/22 Range/Units 19:25 19:25 19:25 WBC (3.8-10.6) k/uL RBC (4.30-5.90) m/uL Hgb (13.0-17.5) gm/dL Hct (39.0-53.0) % MCV (80.0-100.0) fL MCH (25.0-35.0) pg MCHC (31.0-37.0) g/dL RDW (11.5-15.5) % Plt Count (150-450) k/uL MPV Neutrophils % % Lymphocytes % % Monocytes % % Eosinophils % % Basophils % % Neutrophils # (1.3-7.7) k/uL Lymphocytes # (1.0-4.8) k/uL Monocytes # (0-1.0) k/uL Eosinophils # (0-0.7) k/uL Basophils # (0-0.2) k/uL PT 11.2 (9.0-12.0) sec INR 1.1 (<1.2) APTT 21.1 L (22.0-30.0) sec Sodium 138 (137-145) mmol/L Potassium 4.3 (3.5-5.1) mmol/L Chloride 108 H (98-107) mmol/L Carbon Dioxide 22 (22-30) mmol/L Anion Gap 8 mmol/L BUN 51 H (9-20) mg/dL Creatinine 0.63 L (0.66-1.25) mg/dL Est GFR (CKD-EPI)AfAm >90 (>60 ml/min/1.73 sqM) Est GFR (CKD-EPI)NonAf >90 (>60 ml/min/1.73 sqM) Glucose 108 H (74-99) mg/dL POC Glucose (mg/dL) (70-110) mg/dL POC Glu Wet And Dry Sugar Bin Operator ID Lactic Ac Sepsis Rflx Plasma Lactic Acid Klever 3.2 H* (0.7-2.0) mmol/L Calcium 7.4 L (8.4-10.2) mg/dL Total Bilirubin 0.6 (0.2-1.3) mg/dL AST 25 (17-59) U/L ALT 18 (4-49) U/L Alkaline Phosphatase 41 (38-126) U/L Troponin I (0.000-0.034) ng/mL Total Protein 5.1 L (6.3-8.2) g/dL Albumin 2.8 L (3.5-5.0) g/dL Blood Type Blood Type Confirm Blood Type Recheck Bld Type Recheck Status Antibody Screen Crossmatch Spec Expiration Date 09/05/22 09/05/22 09/05/22 Range/Units 19:25 19:25 20:56 WBC (3.8-10.6) k/uL RBC (4.30-5.90) m/uL Hgb (13.0-17.5) gm/dL Hct (39.0-53.0) % MCV (80.0-100.0) fL MCH (25.0-35.0) pg MCHC (31.0-37.0) g/dL RDW (11.5-15.5) % Plt Count (150-450) k/uL MPV Neutrophils % % Lymphocytes % % Monocytes % % Eosinophils % % Basophils % % Neutrophils # (1.3-7.7) k/uL Lymphocytes # (1.0-4.8) k/uL Monocytes # (0-1.0) k/uL Eosinophils # (0-0.7) k/uL Basophils # (0-0.2) k/uL PT (9.0-12.0) sec INR (<1.2) APTT (22.0-30.0) sec Sodium (137-145) mmol/L Potassium (3.5-5.1) mmol/L Chloride (98-107) mmol/L Carbon Dioxide (22-30) mmol/L Anion Gap mmol/L BUN (9-20) mg/dL Creatinine (0.66-1.25) mg/dL Est GFR (CKD-EPI)AfAm (>60 ml/min/1.73 sqM) Est GFR (CKD-EPI)NonAf (>60 ml/min/1.73 sqM) Glucose (74-99) mg/dL POC Glucose (mg/dL) (70-110) mg/dL POC Glu Wet And Dry Sugar Bin Operator ID Lactic Ac Sepsis Rflx Y Plasma Lactic Acid Klever (0.7-2.0) mmol/L Calcium (8.4-10.2) mg/dL Total Bilirubin (0.2-1.3) mg/dL AST (17-59) U/L ALT (4-49) U/L Alkaline Phosphatase (38-126) U/L Troponin I <0.012 (0.000-0.034) ng/mL Total Protein (6.3-8.2) g/dL Albumin (3.5-5.0) g/dL Blood Type A Positive Blood Type Confirm Blood Type Recheck No Previous Record Bld Type Recheck Status CABO Indicated Antibody Screen NEGATIVE Crossmatch See Detail Spec Expiration Date 09/08/20222324 - EKG Data -: EKG Interpreted by [place] EKG shows normal: sinus rhythm, axis, intervals (Normal), QRS complexes (Possible incomplete right bundle branch block pattern) Rate: bradycardia (Rate 52 bpm) Interpretation: nonspecific ST-T wave changes Critical Care Time Critical Care Time: Yes (30 minutes) Disposition Clinical Impression: GI bleeding Disposition: OTHER INSTITUTION NOT DEFINED Condition: Fair Is patient prescribed a controlled substance at d/c from ED?: No Referrals: Thong Viera MD [Primary Care Provider] - 1-2 days - Out of Hospital Transfer - Req. Specs Out of Hospital Transfer - Requested Specifics: Other Emergency [facility] ([facility]
[2022-09-05] MEDS ORDERED: TRANEXAMIC ACID 1,000 MG in SODIUM CHLORIDE 0.9% 100 ML IVPB ONE (19:48)
[2022-09-05 20:46] LABS: Basophils # (A) 0.1 k/uL (0-0.2); Basophils % (A) 1 %; Eosinophils # (A) 0.2 k/uL (0-0.7); Eosinophils % (A) 2 %; HCT 31.3 % (39.0-53.0); HGB 10.4 gm/dL (13.0-17.5); Lymphocytes # (A) 3.3 k/uL (1.0-4.8); Lymphocytes % (A) 32 %; MCH 32.9 pg (25.0-35.0); MCHC 33.3 g/dL (31.0-37.0); MCV 98.7 fL (80.0-100.0); Monocytes # (A) 0.4 k/uL (0-1.0); Monocytes % (A) 4 %; Neutrophils # (A) 6.4 k/uL (1.3-7.7); Neutrophils % (A) 61 %; Platelet Count 193 k/uL (150-450); RBC 3.17 m/uL (4.30-5.90); RDW 13.4 % (11.5-15.5); WBC 10.5 k/uL (3.8-10.6)
[2022-09-05 20:48] LABS: ALT 18 U/L (4-49); African American GFR (CKD) >90 (>60 ml/min/1.73 sqM); Albumin 2.8 g/dL (3.5-5.0); Anion Gap 8 mmol/L; Blood Urea Nitrogen 51 mg/dL (9-20); Calcium 7.4 mg/dL (8.4-10.2); Carbon Dioxide 22 mmol/L (22-30); Chloride 108 mmol/L (98-107); Glucose 108 mg/dL (74-99); Non-African American GFR(CKD) >90 (>60 ml/min/1.73 sqM); Sodium 138 mmol/L (137-145); Total Bilirubin 0.6 mg/dL (0.2-1.3); Total Protein 5.1 g/dL (6.3-8.2)
[2022-09-05 20:54] LABS: AST 25 U/L (17-59); Alkaline Phosphatase 41 U/L (38-126); Potassium 4.3 mmol/L (3.5-5.1)
[2022-09-05 21:04] LABS: INR 1.1 (<1.2); Partial Thromboplastin Time 21.1 sec (22.0-30.0)
[2022-09-05] MEDS ORDERED: SODIUM CHLORIDE 0.9% 1,000 ML IV STA (21:06)
[2022-09-05] MEDS ORDERED: PANTOPRAZOLE 40 MG/10 ML VIAL IVP STA (21:06)
[2022-09-05 21:17] LABS: Prothrombin Time 11.2 sec (9.0-12.0)
[2022-09-05 22:03] VITALS: BP 108/67; PULSE 55; RESP 18
== END 2022-09-05 22:39 | disposition other institution (70) ==
LOC: EC 19:12
DX: K92.2 Gastrointestinal hemorrhage, unspecified (principal); Z87.891 Personal history of nicotine dependence
CPT/HCPCS: 36415; 93005; 86900; 86901; 80053; 83605; 84484; 85025; 85610; 85730; 86850; 99291; 96365; 96375; 96361; C9113

== ENCOUNTER → 2024-10-08 | Outpatient (CLI) | payer MEDICARE ==
--- NOTE | 2024-10-08 12:49 | XR ---
EXAMINATION TYPE: XR shoulder complete RT DATE OF EXAM: 10/08/2024 12:41 PM COMPARISON: None. CLINICAL INDICATION: Male, 73 years old with history of M25.511, Pain TECHNIQUE: XR shoulder complete RT view(s) obtained. FINDINGS: The humeral head articulates with the glenoid. The acromio-clavicular junction is normal. No acute fractures or dislocations are evident. A follow up study can be performed 7-10 days from acute trauma for continued pain. MRI can be perfor med if soft tissue evaluation would be of benefit. IMPRESSION: 1. No acute osseous right shoulder abnormality. [facility], Workstation: [facility], 10/08/2024 12:47 PM
== END | disposition home or self-care (01) ==
LOC: RADXRMAIN 12:08
PROVIDERS: ATTEND Family Medicine
DX: M25.511 Pain in right shoulder (principal)